=== PATIENT | female | born 1945 | race Caucasian/White ===

== ENCOUNTER → 2018-06-26 | Outpatient (CLI) | payer MEDICARE, OTHER ==
[~2018-06-26] MED LIST: APAP500 PO; CELEXA10 MG PO; COLACE100 MG PO; COZAAR 50 MG TA50 M2 PO; LIPITOR 20 MG T20 M1 PO; NASACORT10.8 ML; NEXIUM PO; PROLIA60 MG/1 ML SQ; QVAR8.7 G1 IH; TORSEMIDE20 MG PO; ZANAFLEX4 M1 PO
--- NOTE | 2018-08-04 10:00 | PAINCON ---
[address] [address] PAIN MANAGEMENT CONSULTATION Name: NICANOR CEBALLOS Room: [facility] Rebecca#: [id number] Admission: 06/26/18 Attend Phys: Elena Porter MD Discharge: Date of : 49 Report #: [id number] THIS REPORT FOR: //name// CC: Hans Cooley DATE OF SERVICE: 06/26/2018 CHIEF COMPLAINT: Back and leg pain. HISTORY OF PRESENT ILLNESS: The patient is a 73-year-old female who has been seen in the Pain Clinic by Dr. Dobson. This is my first visit with the patient. She has a history of lumbar radiculopathy. She underwent epidural steroid injections in the past and found both of them to be helpful. She is undergoing physical therapy. She has been having pain and discomfort, which is radiating down into her legs. She has undergone vein treatment. She is also being followed by orthopedic physician. She finds that ibuprofen is helpful. Tizanidine is beneficial. Notes that her pain is worse when she is sitting and standing as well as going from a sitting to a standing position. She notes that her pain started in the middle of her back in about April. She was in a van. She had been unable to lift her left leg. Rates her pain as a 2 while sitting, rise to a level of 6-8 with activity. Denies any new bowel or bladder problems. ALLERGIES: Z-JAVON. MEDICATIONS: Tizanidine 4 mg 1/2 tablet to 1 tablet at bedtime p.r.n. and ibuprofen 200 mg p.r.n. Medications she used in the past are albuterol inhalation, Lipitor 20 mg, citalopram 10 mg, Colace 100 mg, iron, losartan 100 mg, MiraLax powder, Nasacort inhaler 2 sprays both nostrils daily, Nexium [id number], QVAR dose inhaler aerosol, torsemide 20 mg, Zyrtec 10 mg. PAST MEDICAL HISTORY: Anxiety, depression, arthritis, back pain, bronchitis, chronic renal insufficiency stage 3, chronic venous insufficiency, edema, osteoarthritis, bilateral knee replacement, hypertension, hyperlipidemia, osteoporosis, pain in the right shoulder, right arm pain, renal stones. PAST SURGICAL HISTORY: Passage of renal stone, total knee replacement in 07/2008, total knee replacement in 03/2008, sinus surgery 09/2003, abdominal hysterectomy 01/2003, kidney stone removal 09/1987, breast biopsy 08/1987, kidney stone removal 03/1987, D and C 1974, breast biopsy, and endovenous laser ablation of varicose veins. SOCIAL HISTORY: Denies use of tobacco, alcohol and illicit drugs. REVIEW OF SYSTEMS: Positive for low back pain, right lower extremity pain, [place] [address] PAIN MANAGEMENT CONSULTATION Name: NICANOR CEBALLOS Room: [facility]#: [id number] Admission: 06/26/18 Attend Phys: Elena Porter MD Discharge: Date of : 49 Report #: [id number] hypertension, depression, dyslipidemia, gastroesophageal reflux. IMAGING DATA: MRI of the lumbar spine dated 08/24/2016 shows diffuse degenerative disk disease, trace annular disk bulging at L1 through L4, severe spinal stenosis noted at L4-L5, posterior facet and ligamentum flavum hypertrophy, broad-based annular bulge, bilateral neural foraminal effacement. PAIN CLINIC ASSESSMENT: 1. History of osteoarthritis involving bilateral knees with knee replacement. The patient is not being treated for rheumatoid arthritis. 2. Height 5 feet 2 inches, weight 248 pounds, BMI is 44. 3. Vital signs: Blood pressure 143/72, heart rate 75, respiratory rate 16, room air saturation 96%, temperature 97.8. 4. Pain score intensity: 5/10. 5. Fall history: The patient has not fallen in the last 3 months. 6. Blood thinner: The patient is not on a blood thinning medication. 7. Hypertension: The patient is being treated for hypertension. 8. Opioid therapy greater than 6 weeks: The patient is not on an opioid regimen. 9. Risk assessment tool low for opioid use. 10. Functional assessment tool: 65/70. 11. Recreational drug use: The patient denies use of recreational drugs. 12. Tobacco: The patient denies use of tobacco at this juncture. 13. Alcohol: The patient denies use of alcohol. PHYSICAL EXAMINATION: GENERAL: The patient is a well-developed, well-nourished, somewhat obese, white female. Appears her stated age. She is alert and oriented x 3. Affect is appropriate. Speech is fluent. HEENT: Normocephalic, atraumatic. Extraocular eye muscles intact. Sclerae nonicteric. Mucous membranes are moist. NECK: Good range of motion without JVD or adenopathy. LUNGS: Clear to auscultation without rhonchi or rales at this juncture. CARDIOVASCULAR: Regular rate without appreciation of rub or gallop. ABDOMEN: Soft, obese, nontender, nondistended. MUSCULOSKELETAL: Upper extremity with no clubbing, cyanosis or edema. Muscle strength is judged to be 5/5 for the major muscle groups in the upper extremity. Lower extremity strength 5-/5 for the major muscle groups in the lower extremity. She complains of pain and discomfort in the low back area. Slight antalgic gait. Straight leg raise is positive on the left. IMPRESSION: 1. Lumbar radiculopathy at L5-S1 distribution on the left. 2. Anxiety. 3. Depression. 4. [place] [address] PAIN MANAGEMENT CONSULTATION Name: NICANOR CEBALLOS [id number] Admission: 06/26/18 Attend Phys: Elena Porter MD Discharge: Date of : 49 Report #: [id number] 5. Back pain. 6. Bronchitis. 7. Chronic renal insufficiency stage 3. 8. Chronic venous insufficiency. 9. Edema. 10. Osteoarthritis. 11. Bilateral knee replacement. 12. Hypertension. 13. Hyperlipidemia. 14. Osteoporosis. 15. Pain in the right shoulder. 16. Right arm pain. 17. Renal stones. RECOMMENDATIONS: We discussed treatment options with the patient. Risks and benefits of an epidural steroid injection were discussed. They could include but are not limited to infection, increased muscle soreness, headache, bleeding, worsening of pain, no improvement in pain, and the patient elects to proceed. PROCEDURE NOTE: The patient was taken to the treatment area. She was assisted in getting on the examination table. Risks and benefits of an epidural steroid injection had been discussed. They included but were not limited to infection, increased muscle soreness, headache, bleeding, worsening of pain, nerve damage. The patient's back was sterilely prepped with Betadine. A pillow was placed under the abdomen to bolster and improve positioning. Fluoroscopy using anterior and posterior as well as lateral viewing were instituted. A left paracentral injection was provided after it had been infiltrated with 0.25% bupivacaine. At the L5-S1 interspace, a 17-gauge Tuohy with loss of resistance technique was used to gain access to the epidural space. There was no CSF, heme or paresthesia. Total of 80 mg Depo-Medrol, 40 mg triamcinolone, and 2 mL of 0.25% bupivacaine was injected. The patient tolerated the procedure well. There were no complications. Pain decreased from 6-8 to 0 at the time of discharge. She will follow up in the future as needed. We would like to thank you for letting us participate in her care. She will call us if she has any concerns. <ELECTRONICALLY SIGNED> By: Elena Porter MD 08/04/18 [id number]. Naun Porter MD /christine
== END ==
LOC: M.PC 04:37
DX: M54.16 Radiculopathy, lumbar region (principal); Z88.1 Allergy status to other antibiotic agents; Z79.899 Other long term (current) drug therapy